=== PATIENT | male | born 1965 | race Caucasian/White ===

== ENCOUNTER 2024-10-27 09:22 | Inpatient (IN) | payer OTHER, MEDICARE ==
[~2024-10-27] VITALS: Ht 185.4 cm; Wt 102.3 kg
[~2024-10-27 09:22] MED LIST: FENO145T38 CORPAK
--- NOTE | 2024-10-27 09:41 | Physician Documentation ---
History of Present Illness ~ Chief Complaint: Wound Stated Complaint: BLOOD INFECTION Time Seen by MD: 09:26 Primary Medical Doctor: CHRISTOFER DAILEY Source: patient Mode of Arrival: POV Exam Limitations: no limitations HPI Chief Complaint: Left leg pain Caveat: None Independent Historians: History of Present Illness: Patient is a 59-year-old man who comes in complaining of increasing redness and pain in the left leg and thigh. Patient has been going to wound care for a wound to the left large toe since father's day of this year. Friday some time he noticed redness extending into the foot and leg. He went to urgent Care Friday and was placed on Bactrim and Keflex. Patient's redness and pain has been getting progressively worse to where he now has redness over the left anterior leg and medial left thigh. Pain is 10/10. Pain is constant. Pain is worse with attempts at walking. Review of systems: All systems were reviewed and are negative except for what is indicated in the history of present illness. Past Medical History: CAD, type 2 diabetes Past Surgical History: CABG x2 Social History: , no tobacco use, no alcohol use, no drug use Medications: Reviewed as documented Nursing Notes Allergies: Reviewed as documented in Nursing Notes Tetanus witin 5 years: No Medication Reconciliation Allergies: Coded Allergies: carisoprodol (Unverified Allergy, Unknown, 11/05/16) Scheduled Fenofibrate Nanocrystallized (TRICOR tablet), 145 MG [place]PA[place] DAILY Past Medical History Past Medical History: Coronary Artery Disease, High Cholesterol, Hypertension, Myocardial Infarction, Diabetes Past Surgical History: coronary bypass surgery Alcohol Use: Occasionally Lives In: Home Review of Systems All Other Systems at this time: Reviewed and Negative ROS Patient denies any other acute symptoms other than above. All other systems are negative Physical Exam Vital Signs: RN Vital Signs have been reviewed: Yes, Temperature: 97.9, Source: Oral, Heart Rate: 83, Respiratory Rate: 18, BP: 114/74, Pulse Oximetry: 99, Weight: 102.270 Pulse Oximetry Reflects: adequate oxygenation Physical Exam General Appearance: No distress HEENT: Normal OP, moist oral mucosa, PERRL, EOMI Neck: supple, normal ROM, trachea midline Pulmonary: No respiratory distress, CTA, BS equal Cardiac: RRR, no murmur, rub or gallop, GI: nondistended, soft, nontender, normal bowel sounds, no guarding, no rebound Extremities: Wound to left large toe. Patient has erythema over the dorsal left foot and anterior left leg in medial left thigh. All these areas are tender to palpation. No crepitus noted. The areas of erythema or hot to touch. Skin: intact, dry, warm, no rashes Neuro: AAOx3, speech is clear, no focal motor weakness Psych: normal affect, good eye contact, no apparent hallucination, normal speech Progress Results/Orders Results/Orders Orders - NAT WANG MD Culture Blood (10/27/24 09:33) Chest,Single View (10/27/24 09:33) Ct Lower Extremity (10/27/24 09:36) Page Hospitalist (10/27/24 13:49) Fill Out Med Reconciliation (10/27/24 13:49) Completed Orders - NAT WANG MD Electrocardiogram (10/27/24 09:33) Cbc/Diff (10/27/24 09:33) MG (10/27/24 09:33) Chest,Single View (10/27/24 09:33) Procalcitonin (10/27/24 09:33) Vancomycin*Pharmacy To Dose* (Vancomycin (10/27/24 09:35) Piperacillin/Tazo 3.375gm/50ml (Zosyn 3. (10/27/24 09:35) BMP (10/27/24 09:33) Lacticsepsis (10/27/24 09:33) Ringers Solution, Lacted (Lactated Ringe (10/27/24 09:35) Ct Lower Extremity (10/27/24 09:36) Vancomycin/H2o 1.75g/350ml Pb (Vancomyci (10/27/24 09:45) Iohexol 300mg/Ml 100ml Inj. (Omnipaque-3 (10/27/24 10:08) Morphine 10mg/Ml Inj. (Morphine Inj.) (10/27/24 10:10) Ondansetron Inj. (Zofran 4mg/2ml Vial) (10/27/24 10:10) Ua W/Microscopic, Cult If Ind (10/27/24 10:35) Ringers Solution, Lacted (Lactated Ringe (10/27/24 13:05) Medications Received in ER Medications (Trade) Dose Ordered Sig/Millie Route PRN Reason Start Time Stop Time Status Last Admin Dose Admin Piperacillin/ Tazobactam/ Dextrose 50 ml @ 100 mls/hr ONCE ONCE IV 10/27/24 09:35 10/27/24 10:04 DC 10/27/24 09:46 100 MLS/HR (lactated ringers solution) 1,000 ml ONCE ONCE IV 10/27/24 09:35 10/27/24 09:36 DC 10/27/24 09:49 1,000 ML Vancomycin HCl 350 ml @ 117 mls/hr ONCE ONCE IV 10/27/24 09:45 10/27/24 12:44 DC 10/27/24 09:57 117 MLS/HR (morphine inj.) 8 mg ONCE ONCE IV 10/27/24 10:10 10/27/24 10:11 DC 10/27/24 10:14 8 MG (Zofran 4mg/2ml vial) 4 mg ONCE ONCE IV 10/27/24 10:10 10/27/24 10:11 DC 10/27/24 10:14 4 MG Lactated Ringer's 1,000 ml @ 1,000 mls/hr ONCE ONCE IV 10/27/24 13:05 10/27/24 14:04 DC 10/27/24 13:11 1,000 MLS/HR Vital Signs 10/27/24 10/27/24 10/27/24 10/27/24 09:28 09:34 10:10 10:14 Temp 97.9 97.9 Pulse 83 78 Resp 18 18 18 B/P (MAP) 114/74 100/63 (75) Pulse Ox 99 98 10/27/24 10/27/24 10/27/24 10/27/24 10:22 10:52 11:48 13:05 Temp 97.9 97.9 Pulse 79 74 72 Resp 18 18 14 18 B/P (MAP) 95/60 (72) 108/70 (83) 88/62 (71) Pulse Ox 97 99 98 10/27/24 10/27/24 10/27/24 13:16 13:36 14:09 Temp 97.9 97.9 97.9 Pulse 72 71 70 Resp 18 18 18 B/P (MAP) 94/61 (72) 98/60 (73) 113/70 (84) Pulse Ox 97 98 98 Laboratory Tests Test 10/27/24 09:43 10/27/24 10:35 White Blood Count 7.2 Red Blood Count 4.99 Hemoglobin 14.3 Hematocrit 43.7 Mean Corpuscular Volume 87.6 Mean Corpuscular Hemoglobin 28.6 Mean Corpuscular Hemoglobin Concent 32.7 L Red Cell Distribution Width 13.7 Platelet Count 189 Mean Platelet Volume 9.2 Neutrophils (%) (Auto) 70.2 Lymphocytes (%) (Auto) 19.1 L Monocytes (%) (Auto) 8.4 Eosinophils (%) (Auto) 1.8 Basophils (%) (Auto) 0.5 Neutrophils # (Auto) 5.1 Lymphocytes # (Auto) 1.4 Monocytes # (Auto) 0.6 Eosinophils # (Auto) 0.1 Basophils # (Auto) 0.0 CBC Comment Sodium Level 139 Potassium Level 4.1 Chloride Level 105 Carbon Dioxide Level 23.0 L Anion Gap 11 Blood Urea Nitrogen 12 Creatinine 0.79 Estimated GFR/1.73 m2 > 90 BUN/Creatinine Ratio 15.2 Glucose Level 160 H Lactic Acid Level 1.4 Calcium Level 9.2 Magnesium Level 1.8 Albumin 3.2 L Procalcitonin 0.15 Chemistry Comments Urine Specimen Description Voided Urine Color Yellow Urine Clarity Clear Urine pH 6.5 Urine Specific [place] 1.010 Urine Protein Negative Urine Glucose (UA) >=1000 H Urine Ketones Negative Urine Occult Blood Negative Urine Nitrite Negative Urine Bilirubin Negative Urine Urobilinogen 1.0 Urine Leukocyte Esterase Negative Urine RBC 0-2 Urine WBC 0-4 Urine Squamous Epithelial Cells Few Urine Bacteria None seen Urine Culture Indicated Not ind Volume Urine Centrifuged 10 ml Urine Comment Microbiology Date/Time Source Procedure Growth Status 10/27/24 09:44 Blood Iv Start Blood Culture - Preliminary NEGATIVE (LESS THAN 24 HOURS) Resulted Medical Decision Making Additional info obtained from: family Findings Differential diagnosis includes but is not limited to: Necrotizing fasciitis, cellulitis, sepsis, osteomyelitis large left toe EKG independent interpretation: Performed at 9:48 a.m.. Normal sinus rhythm, heart rate 79, normal axis, normal ST segments, Q-waves in V1 through V3 minimal ST-elevation in lead two CT left lower extremity with IV contrast, indication: Infection, evaluate for a possible necrotizing fasciitis Impression: 1. Subcutaneous edema in the left lower extremity extending from the posterior medial aspect of the mid thigh down to the foot which may reflect cellulitis. No fluid collection to suggest abscess. 2. No CT evidence of osteomyelitis in the left lower extremity. Chest x-ray, single view, indication: Hypotension Independent interpretation: Lungs are clear, normal mediastinum, normal cardiac silhouette, sternal wires. No acute cardiopulmonary process. Laboratory data independent interpretation: CBC: Unremarkable CMP: Serum glucose mildly elevated at 160 Lactic acid: 1.4 Emergency department course/medical decision-making: Patient presents with an infected left large toe with associated cellulitis of the entire left lower extremity. Do not suspect necrotizing fasciitis however the patient will get a CT scan of the left lower extremity with IV contrast. Patient does not seem to be septic given his vital signs. Lab work is pending. Patient is given IV vanco and IV Zosyn. Patient is also given 1 L of IV normal saline. Patient will be given morphine 4 mg IV for pain and 4 mg of Zofran for possible associated nausea. The workup plan and need for admission as already been discussed and reviewed with the patient and his . Patient also has been on antibiotics for two days with worsening condition. Patient's blood pressure has been soft in the low one 100s and 90s systolic. However the patient states that his blood pressure has been running low and he is no longer on blood pressure medications. Patient will be given 1 L of normal saline. If blood pressure does not improve he will be given a 2 L. patient however is not thought to have severe sepsis. Patient's lactic acid is 1.4 and there was no evidence of a anion gap. Consultation/communications: 2:00 p.m.: Case discussed with the hospitalist Dr. Velazquez. She will evaluate the patient for admission. Departure Time of Disposition: 14:45 Disposition: 09 ADMITTED INPATIENT Admitted to Inpatient Unit: to hospitalist Admission Level of Care: Med/Surg Impression: Primary Impression: Cellulitis of left lower extremity Additional Impression: Sepsis Qualified Codes: A41.9 - Sepsis, unspecified organism Condition: Guarded Education Educated: Patient, Family Educated regarding: diagnosis, treatment Signature Scribe Signature: No scribe Attestation: No scribe NTA WANG MD Oct 27, 2024 09:41
[2024-10-27] MEDS: piperacillin/tazo 3.375gm/50ml 50 ML IV ONE (09:46)
[2024-10-27] MEDS: ringers solution, lactated 1000ml IV soln IV ONE ×2 (09:49→15:22)
--- NOTE | 2024-10-27 09:51 | ELECTROCARDIOGRAPH REPORT ---
[facility] Test Date: 2024-10-27 Test Time: 09:48:47 Pat Name: EDGARDO QUINN Department: [facility] Patient ID: [id number] Room: Gender: M Program Engineer: : 1965 Requested By: NAT WANG Order Number: [id number] Reading MD: Measurements Intervals [place] Rate: 79 P: 2 ME: 174 QRS: 16 QRSD: 91 T: 50 QT: 374 QTc: 429 Interpretive Statements Atrial-paced complexes Low voltage, extremity leads Anteroseptal infarct, old Please click the below link to view image of tracing.
[2024-10-27] MEDS: VANCOMYCIN 1.75GM/WATER FOR INJ (PEG) 350 ML IVPB IV ONE (09:57)
--- NOTE | 2024-10-27 10:04 | RADIOLOGY REPORT ---
CHEST RADIOGRAPH Indication: SEPSIS Technique: Single frontal view of the chest was obtained Comparison: None FINDINGS: Lines and Tubes: None Lungs: No focal consolidation. Pleura: No effusion. No pneumothorax. Cardiomediastinal contours: Unremarkable Bones: Median sternotomy. IMPRESSION: No acute cardiopulmonary disease.
[2024-10-27] MEDS ORDERED: iohexol 300mg/ml 100ml inj. ONE (10:08)
[2024-10-27 10:10] LABS: MEAN PLATELET VOLUME 9.2 FL (7.4-10.4); RED CELL DISTRIBUTION WIDTH 13.7 % (11.5-14.5)
[2024-10-27] MEDS: morphine 10mg/ml inj. IV ONE (10:14)
[2024-10-27] MEDS: ondansetron/PF 4mg/2ml inj IV ONE (10:14)
[2024-10-27 10:46] LABS: CREATININE 0.79 MG/DL (0.60-1.10); TOTAL CARBON DIOXIDE 23.0 MMOL/L (24-32); eCRCL 114 ML/MIN; eGFR > 90 ML/MIN
[2024-10-27 10:47] LABS: LEUKOCYTE ESTERASE ,URINE NEGATIVE (Neg); NITRITES, URINE NEGATIVE (Neg); OCCULT BLOOD,URINE NEGATIVE (Neg)
[2024-10-27 10:51] LABS: UA COLLECTION TYPE VOIDED
[2024-10-27 10:55] LABS: SQUAMOUS EPITHELIAL CELL,UR FEW /LPF (FEW)
--- NOTE | 2024-10-27 13:08 | RADIOLOGY REPORT ---
CLINICAL INDICATION: Infection of left big toe; red-line extending from toe to thigh TECHNIQUE: CT of the left lower extremity was performed with intravenous contrast. Coronal and sagitt al reformatted images are submitted. 100 mL of Omnipaque 300 intravenous contrast was used. COMPARISON: None CT Dose: CTDI volume is 11.7 mGy. Dose-length product is 1406.2 mGy*cm FINDINGS: No fracture or dislocation. The left hip, knee and ankle joint spaces are maintained. There is subcutaneous edema in the medial left lower extremity extending from the posterior medial mid thi gh down to the foot. There is no fluid collection. There is 3-vessel runoff. Regional muscles are no rmal in bulk and attenuation. Prominent left groin lymph nodes measuring up to 1.5 cm consistent with reactive adenopathy. Partially included right lower extremity shows no acute abnormality. Degenerative changes noted in th e partially included knee. IMPRESSION: 1. Subcutaneous edema in the left lower extremity extending from the posterior medial aspect of the m id thigh down to the foot which may reflect cellulitis. No fluid collection to suggest abscess. 2. No CT evidence of osteomyelitis in the left lower extremity. All CT scans at this medical facility are performed using dose modulation techniques as appropriate t o a performed exam including the following: Automated exposure control was utilized; adjustment of th e MA and/or KV according to patient size; and use of iterative reconstruction technique.
[2024-10-27] MEDS: ringers solution, lacted 1,000 ML IV ONE (13:11)
[2024-10-27] MEDS ORDERED: magnesium sulf-water 4G/100mL 100 ML IV PRN (14:20)
[2024-10-27] MEDS ORDERED: dextrose 50%-water 50ml dispensing syringe IV PRN ×2 (14:20)
[2024-10-27] MEDS ORDERED: DEXTROSE 15 GM of carb/4 tabs (each vial/BOTTLE has 4 tablets) PO PRN ×2 (14:20)
[2024-10-27] MEDS ORDERED: potassium Cl 20 mEq SR tablet PO PRN ×2 (14:20)
[2024-10-27] MEDS ORDERED: magnesium sulf-water 2g/50mL 50 ML IV PRN (14:20)
[2024-10-27] MEDS ORDERED: magnesium Cl slow-release 64mg tablet PO PRN (14:20)
[2024-10-27] MEDS ORDERED: potassium Cl 40MEQ/1/2NS 520ml 520 ML IV PRN (14:20)
[2024-10-27] MEDS ORDERED: magnesium hydroxide 30ml (MOM) UD suspension PO PRN (14:20)
[2024-10-27] MEDS ORDERED: ondansetron/PF 4mg/2ml inj IV PRN (14:20)
[2024-10-27] MEDS ORDERED: mag hydrox/Alum hydrox/simeth 30ml oral suspension PO PRN (14:20)
[2024-10-27] MEDS ORDERED: glucagon, human recombinant 1mg kit SUBCUT PRN (14:20)
[2024-10-27] MEDS: normal saline 1000ml 1,000 ML IV SCH (15:06)
[2024-10-27 16:15] VITALS: BP 99/71; PULSE 81; RESP 16; TEMP 98.6; O2SAT 97
[2024-10-27] MEDS ORDERED: ASPI-1264 PO (16:20)
[2024-10-27] MEDS ORDERED: ROSU20TA98 PO (16:21)
[2024-10-27] MEDS ORDERED: GABA-1405 PO (16:23)
[2024-10-27] MEDS ORDERED: METO1TAB12 PO ×2 (16:24→16:34)
[2024-10-27] MEDS ORDERED: EZET10TA48 PO (16:25)
[2024-10-27] MEDS ORDERED: LISI20TA28 PO (16:29)
[2024-10-27] MEDS ORDERED: TAMS-55 PO (16:29)
[2024-10-27] MEDS ORDERED: ZOLP-679 PO (16:29)
[2024-10-27] MEDS ORDERED: FAMO20TA8 PO (16:30)
--- NOTE | 2024-10-27 17:24 | HISTORY AND PHYSICAL ---
History & Physical Providers to CC ~ History of Present Illness Reason for Admit\Complaint: Redness over left leg since Friday History of Present Illness Patient is 59-year-old male with known history CAD, type 2 diabetes. He follows with software quality specialist Dr. Ely in [place]. Patient has type 2 diabetes but as per patient his diabetes is well controlled last hemoglobin A1c was 7.0 she came to the ER and he mentioned that since Friday he is not feeling well and noticed no redness over the left lower extremity on Friday but on Friday he noticed the redness in which traveled up to his thigh level now. He went to urgent Care Friday and was placed on Bactrim and Keflex. Patient's redness and pain has been getting progressively worse to where he now has redness over the left anterior leg and medial left thigh. He does not use any IV drugs. He had recent travel out of town multiple times since up to now. Patient is ambulatory no recent surgery done. As per his home medication list he is on aspirin 325 mg once daily. Patient denied any pain over the calf muscle over left lower extremity on palpation. Patient denies any other concerns no shortness a breath no chest pain , no irregular heart rate, taking all his medications as recommended. Patient is ex-smoker quit smoking more than 20 years back use beer 2-3 per week no use of any recreational drugs. Allergies: Coded Allergies: carisoprodol (Unverified Allergy, Unknown, 11/05/16) Home Medications Home Medications Active Reported Lopressor Hct 100/50 MG* (Metoprolol/Hydrochlorothiazide 100/50 MG*) 100 Mg/50 Mg Tablet 100 Mg PO DAILY Lisinopril 20 Mg Tablet 10 Mg PO DAILY 30 Days Famotidine 20 Mg Tablet 1 Tab PO HS 30 Days Ambien (Zolpidem Tartrate) 10 Mg Tablet 1 Tab PO HS PRN 30 Days Flomax* (Tamsulosin HCl) 0.4 Mg Cap.sr.24h 1 Cap PO DAILY 30 Days Ezetimibe 10 Mg Tablet 1 Tab PO HS 30 Days Gabapentin 600 Mg Tablet 1 Tab PO QDD 30 Days Rosuvastatin Calcium 20 Mg Tablet 1 Tab PO HS 30 Days Aspirin* (Aspirin) 325 Mg Tablet 1 Tablet PO DAILY Do not stop medication unless instructed by prescriber. Past Medical History Past Medical History CAD, type 2 diabetes Past Surgical History Surgical History Comment CABG x2 Past Social History Social History Comment no tobacco use, no alcohol use, no drug use ROS ROS Review of system as mentioned above in HPI rest of the review of system unremarkable Exam Vitals: Vital Signs Date Time Temp Pulse Resp B/P (MAP) Pulse Ox O2 Delivery O2 Flow Rate FiO2 10/27/24 16:15 98.6 81 16 99/71 (80) 97 Room Air General: General-patient not in any acute distress, alert awake oriented, obese, age- appropriate, looks comfortable HEENT-atraumatic normocephalic, neck supple without elevated JVD, no thyromegaly or carotid bruit. No lymphadenopathy bilaterally. Eyes-no icterus or pallor seen in eyes Chest-clear to auscultation bilaterally, breathing nonlabored no tachypnea, no wheezing, no crepitation, no crackles. Heart-S1-S2 normal, regular heart rate no murmur Abdomen bowel sounds positive on auscultation, soft nondistended nontender no guarding, no rigidity Skin - signs of cellulitis present over left lower extremity extended up to thigh level. Old healing diabetic ulcer present over plantar surface of left great toe. Healed diabetic ulcer present on the plantar surface of right toes. Neurology-grossly intact, nonfocal alert awake oriented Extremity- no pedal edema able to move all 4 extremities Psychiatry - patient is not confused or agitated cooperated during physical examination Diagnostic Data Last Recorded Lab Results: 10/27/24 0943 10/27/24 0943 Advance Care Planning Advanced Care plannin - 30 Minutes Additional Plan Patient is 59-year-old male with known history CAD, type 2 diabetes. He follows with software quality specialist Dr. Ely in [place]. Patient has type 2 diabetes but as per patient his diabetes is well controlled last hemoglobin A1c was 7.0 he came to the ER as on Friday he noticed the redness in which traveled up to his thigh level now. # left lower extremity cellulitis-patient is started on vancomycin, we will continue to monitor patient's vitals. I also ordered Doppler ultrasound for left lower extremity to rule out acute DVT # For type 2 diabetes patient is started on hypo and hyperglycemic protocol , hemoglobin A1c ordered. # Coronary artery disease status post CABG home medication list reviewed , home medication reconciliation done. Patient's blood pressure currently is borderline we will hold patient's lisinopril bisoprolol-hydrochlorothiazide for now and continue to monitor vitals. # code status discussed with the patient patient wishes to stay full code time s pent 16min. Patient's current condition is guarded we will continue to follow patient in a.m. Date of Service: Oct 27, 2024 Billing Provider: RONNA SMITH MD Common Visit Codes: [id number] INP/OBS CARE (HIGH) Secondary Visit Codes: [id number] CARE PLAN 30 MINUTES RONNA SMITH MD Oct 27, 2024 17:24
[2024-10-27] MEDS: INSULIN LISPRO 100 UNIT/ML INSULN.PEN MULTI-DOSE SQ SCH (17:42)
[2024-10-27] MEDS: vancomycin/NS 1 GM ADD-VANTAGE 250 ML IV SCH (17:46)
[2024-10-27 18:00] VITALS: BP_SYST 118; BP_SYST 99; BP_DIAS 71; PULSE 81; RESP 16; TEMP 98.6; O2SAT 97
[2024-10-27] MEDS: heparin, porcine 5000 units/ml vial SQ SCH (20:41)
[2024-10-27] MEDS: docusate sod 100mg capsule PO SCH (20:42)
[2024-10-27 22:00] VITALS: BP 155/88; PULSE 72; RESP 16; TEMP 97.2; O2SAT 100
[2024-10-28 06:00] VITALS: BP 110/74; PULSE 87; RESP 16; TEMP 98; O2SAT 99
[2024-10-28 09:45] LABS: MEAN PLATELET VOLUME 8.4 FL (7.4-10.4); RED CELL DISTRIBUTION WIDTH 13.5 % (11.5-14.5)
[2024-10-28 09:57] LABS: CREATININE 0.80 MG/DL (0.60-1.10); TOTAL CARBON DIOXIDE 25.5 MMOL/L (24-32); eCRCL 112 ML/MIN; eGFR > 90 ML/MIN
[2024-10-28 10:00] VITALS: BP 131/86; PULSE 97; RESP 16; TEMP 98.1; O2SAT 97
[2024-10-28] MEDS: VANCOMYCIN LEVEL IV ONE (10:22)
--- NOTE | 2024-10-28 13:00 | VASCULAR REPORT ---
Left lower extremity venous Doppler INDICATION: Pain and swelling TECHNIQUE: Duplex venous sonography was performed with real-time and flow sensitive images submitted for evaluation. FINDINGS: Normal phasic venous flow. Veins are fully compressible. No filling defects. IMPRESSION: 1. No evidence of deep vein thrombosis left lower extremity..
--- NOTE | 2024-10-28 17:21 | PROGRESS NOTE ---
Daily Progress Note Providers to CC ~ Antibiotic Timeout Antibiotic Ordered?: Yes Subjective Was seen in presence of patient's and his son today. Current updated medical condition labs and diagnostic workup discussed in visit. Venous Doppler studies ordered which was pending . Patient is ambulating no other new concerns. Dizziness and swelling over left lower extremity improved as compared to yesterday Objective Vital Signs Date Time Temp Pulse Resp B/P (MAP) Pulse Ox O2 Delivery O2 Flow Rate FiO2 10/28/24 10:17 88 10/28/24 10:00 98.1 16 131/86 (101) 97 Room Air Result Diagram: 10/28/24 0935 10/28/24 0935 General-patient not in any acute distress, alert awake oriented, obese, age- appropriate, looks comfortable HEENT-atraumatic normocephalic, neck supple without elevated JVD, no thyromegaly or carotid bruit. No lymphadenopathy bilaterally. Eyes-no icterus or pallor seen in eyes Chest-clear to auscultation bilaterally, breathing nonlabored no tachypnea, no wheezing, no crepitation, no crackles. Heart-S1-S2 normal, regular heart rate no murmur Abdomen bowel sounds positive on auscultation, soft nondistended nontender no guarding, no rigidity Skin - healing signs of cellulitis present over left lower extremity extended up to thigh level. Old healing diabetic ulcer present over plantar surface of left great toe. Healed diabetic ulcer present on the plantar surface of right toes. Neurology-grossly intact, nonfocal alert awake oriented Extremity- no pedal edema able to move all 4 extremities Psychiatry - patient is not confused or agitated cooperated during physical examination Problem\Assessment\Plan Patient is 59-year-old male with known history CAD, type 2 diabetes. He follows with discharge specialist Dr. Ely in [place]. Patient has type 2 diabetes but as per patient his diabetes is well controlled last hemoglobin A1c was 7.0 he came to the ER as on Friday he noticed the redness in which traveled up to his thigh level now. # left lower extremity cellulitis-patient is started on vancomycin, we will continue to monitor patient's vitals. I also ordered Doppler ultrasound for left lower extremity to rule out acute DVT # For type 2 diabetes patient is on hypo and hyperglycemic protocol , hemoglobin A1c ordered. # Coronary artery disease status post CABG home medication list reviewed , home medication reconciliation done. Hypertensive medication resumed # code status discussed with the patient patient wishes to stay full code Patient's current condition is guarded we will continue to follow patient in a.m. Date of Service: Oct 28, 2024 Billing Provider: RONNA SMITH MD Common Visit Codes: [id number] INP/OBS CARE(HIGH) RONNA SMITH MD Oct 28, 2024 17:21
[2024-10-28] MEDS: JUVEN Smoothie Arginine/Glut./Ca2+Bmb (Juven 19.3pkt) 240ml cup PO SCH (17:54)
[2024-10-28 18:00] VITALS: BP 117/73; PULSE 94; RESP 16; TEMP 98.5; O2SAT 99
[2024-10-28] MEDS: VANCOmycin 1250MG/NS 250ml Bag 250 ML IV SCH (18:47)
[2024-10-28 20:00] VITALS: RESP 16; O2SAT 99
[2024-10-28 22:00] VITALS: BP 146/92; PULSE 93; RESP 16; TEMP 97.8; O2SAT 96
[2024-10-29 06:00] VITALS: BP 117/77; PULSE 89; RESP 16; TEMP 97.9; O2SAT 97
[2024-10-29 07:13] LABS: MEAN PLATELET VOLUME 8.4 FL (7.4-10.4); RED CELL DISTRIBUTION WIDTH 13.2 % (11.5-14.5)
[2024-10-29 07:46] LABS: CREATININE 0.78 MG/DL (0.60-1.10); TOTAL CARBON DIOXIDE 21.7 MMOL/L (24-32); eCRCL 115 ML/MIN; eGFR > 90 ML/MIN
[2024-10-29 08:05] VITALS: BP_SYST 144; PULSE 82
--- NOTE | 2024-10-29 17:28 | DISCHARGE SUMMARY ---
Discharge Summary Providers to CC ~ Discharge Summary Admission Diagnosis: Left lower extremity cellulitis, borderline blood pressure Hospital Course DATE OF ADMISSION: October 27, 2024 DATE OF DISCHARGE: October 29, 2024 CBC testing done on October 29, 2024 showed WBC 4.2, hemoglobin 13.3 hematocrit 40.1 platelet count 198. Serum chemistry done on October 29, 2024 sodium 140 potassium 4.2 creatinine 0.78 GFR. Hemoglobin A1c 7.0, blood culture showed no growth after two days VL VENOUSIMPRESSION: 1. No evidence of deep vein thrombosis left lower extremity.. CT LOWER EXTREMITYIMPRESSION: 1. Subcutaneous edema in the left lower extremity extending from the posterior medial aspect of the mid thigh down to the foot which may reflect cellulitis. No fluid collection to suggest abscess. 2. No CT evidence of osteomyelitis in the left lower extremity. CHEST,SINGLE VIEW-IMPRESSION: No acute cardiopulmonary disease. Discharge Diagnosis\Comment: left lower extremity cellulitis, Coronary artery disease status post CABG , type 2 diabetes uncontrolled Operations\Procedures: none Consultants: none Complications: none Condition on DC: Stable Continued Medications: Aspirin* (Aspirin*) 325 Mg Tablet 1 TABLET PO DAILY, TABLET Do not stop medication unless instructed by prescriber. Ezetimibe (Ezetimibe) 10 Mg Tablet 1 TAB PO HS for 30 Days, #30 TAB 0 Refills Famotidine (Famotidine) 20 Mg Tablet 1 TAB PO HS for 30 Days, #60 TAB 0 Refills Gabapentin (Gabapentin) 600 Mg Tablet 1 TAB PO QDD for 30 Days, #90 TAB 0 Refills Lisinopril (Lisinopril) 20 Mg Tablet 10 MG PO DAILY for 30 Days, #30 TAB Metoprolol/Hydrochlorothiazide 100/50 MG* (Lopressor Hct 100/50 MG*) 100 Mg/50 Mg Tablet 100 MG PO DAILY, TAB Rosuvastatin Calcium (Rosuvastatin Calcium) 20 Mg Tablet 1 TAB PO HS for 30 Days, #30 TAB 0 Refills Tamsulosin Hcl* (Flomax*) 0.4 Mg Cap.sr.24h 1 CAP PO DAILY for 30 Days, #30 CAP Zolpidem Tartrate (Ambien) 10 Mg Tablet 1 TAB PO HS PRN for sleep for 30 Days, #30 TAB 0 Refills Discharge Summary: Patient is 59-year-old male with known history CAD, type 2 diabetes. He follows with health support specialist Dr. Ely in [place]. Patient has type 2 diabetes but as per patient his diabetes is well controlled last hemoglobin A1c was 7.0 he came to the ER as on Friday he noticed the redness in which traveled up to his thigh level now. During hospitalization patient was treated for # left lower extremity cellulitis-patient is started on vancomycin, we will continue to monitor patient's vitals. I also ordered Doppler ultrasound for left lower extremity to rule out acute DVT # For type 2 diabetes patient is on hypo and hyperglycemic protocol , hemoglobin A1c 7.0 # Coronary artery disease status post CABG home medication list reviewed , home medication reconciliation done. Hypertensive medication resumed Patient is feeling much better he has been afebrile and getting discharged home in stable condition. Patient is seen and examined on the day of discharge in presence of his today. Detailed discharge instructions provided to the patient. All labs diagnostic workup and discharge plan discussed before his discharge all questions and concerns answered to the best of my professional medical knowledge. As per patient he already has antibiotics prescribed from [place] ( Keflex 500 mg q.i.d.) and he prefers to finish those antibiotics after his home discharge and he is willing to follow with [place] in do repeat labs with them in outpatient setting. Patient is ambulating cleared by Physical therapy team. Please follow-up with primary care physician in [place] for hospital discharge visit. Activity as tolerated. General-patient not in any acute distress, alert awake oriented, obese, age- appropriate, looks comfortable HEENT-atraumatic normocephalic, neck supple without elevated JVD, no thyromegaly or carotid bruit. No lymphadenopathy bilaterally. Eyes-no icterus or pallor seen in eyes Chest-clear to auscultation bilaterally, breathing nonlabored no tachypnea, no wheezing, no crepitation, no crackles. Heart-S1-S2 normal, regular heart rate no murmur Abdomen bowel sounds positive on auscultation, soft nondistended nontender no guarding, no rigidity Skin - well healing signs of cellulitis present over left lower extremity. Old healing diabetic ulcer present over plantar surface of left great toe. Healed diabetic ulcer present on the plantar surface of right toes. Neurology-grossly intact, nonfocal alert awake oriented Extremity- no pedal edema able to move all 4 extremities Psychiatry - patient is not confused or agitated cooperated during physical examination *Problems/Diagnosis: (1) Cellulitis of left lower extremity Status: Acute Total Time Spent on D/C: > 30 Minutes Date of Service: Oct 29, 2024 Billing Provider: RONNA SMITH MD Common Visit Codes: 81058-AME/OBS DISCH DAY >30min RONNA SMITH MD Oct 29, 2024 17:22
[2024-10-29] MEDS ORDERED: VANCOMYCIN LEVEL IV ONE (17:30)
== END 2024-10-29 11:50 | disposition home or self-care (01) | DRG 603 ==
LOC: ER 09:22 → ED HOLD 14:18 → ORTHO 4S 16:10
PROVIDERS: ADMIT Internal Medicine; ATTEND Internal Medicine
PROC: B42G1ZZ Computerized Tomography (CT Scan) of Left Lower Extremity Arteries using Low Osmolar Contrast (ICD-10-PCS; principal; 2024-10-27)
DX: L03.116 Cellulitis of left lower limb (principal); I25.10 Atherosclerotic heart disease of native coronary artery without angina pectoris; E11.9 Type 2 diabetes mellitus without complications; E78.00 Pure hypercholesterolemia, unspecified; I10 Essential (primary) hypertension; I25.2 Old myocardial infarction; Z79.82 Long term (current) use of aspirin; Z87.891 Personal history of nicotine dependence; Z95.1 Presence of aortocoronary bypass graft
CPT/HCPCS: 36415; 71045; 73701; 80048; 80053; 80202; 81001; 82948; 83036; 83605; 83735; 84145; 85025; 87040; 87081; 93005; 93971; 96365; 99285; A6446; A6449; G0378; J1644; J1815; J2274; J2405; J2543; J3373; J3374; J3375; J7030; J7120; Q9967